=== PATIENT | female | born 1955 | race African-American/Black ===

== ENCOUNTER 2016-06-29 08:13 | Outpatient (CLI) | payer OTHER ==
[~2016-06-29 08:13] MED LIST: LEVO0.2T5 PO
[2016-06-29 09:54] LABS: HEMATOCRIT 41.7 % (36-48); HEMOGLOBIN 13.4 g/dL (12.0-16.0); MEAN CORPUSCULAR HEMOGLOBIN 26 pg (27-31); MEAN CORPUSCULAR HGB CONC 32 g/dL (33-37); MEAN CORPUSCULAR VOLUME 80 fL (80-94); PLATELET COUNT (AUTO) 317 K/uL (140-450); RED BLOOD CELL COUNT(AUTO) 5.23 MIL/uL (4.20-5.40); RED CELL DISTRIBUTION WIDTH 15.9 % (11.6-13.7)
[2016-06-29 09:59] LABS: WHITE BLOOD COUNT (AUTO) 6.4 K/uL (4.8-10.8)
[2016-06-29 10:30] LABS: ALANINE AMINOTRANSFERASE 30 U/L (12-78); ALBUMIN 3.8 g/dL (3.4-5.0); ALKALINE PHOSPHATASE 76 U/L (46-116); ANION GAP 8.8 (8-16); ASPARTATE AMINOTRANSFERASE 23 U/L (15-37); CALCIUM 9.2 mg/dL (8.5-10.1); CARBON DIOXIDE 31.4 mmol/L (21-32); CHLORIDE 102 mmol/L (98-107); CREATININE 0.9 mg/dL (0.6-1.3); GFR ARICAN-AMERICAN 82 mL/min (>90); GFR NON ARICAN-AMERICAN 67 mL/min (>90); GLUCOSE 100 mg/dL (74-106); POTASSIUM 3.2 mmol/L (3.5-5.1); SODIUM SERUM 139 mmol/L (136-145); TOTAL BILIRUBIN 0.4 mg/dL (0.0-1.0); TOTAL PROTEIN, SERUM 7.4 g/dL (6.4-8.2); UREA NITROGEN, BLOOD 12 mg/dL (7-18)
[2016-06-29 10:40] LABS: NEUTROPHILS % (MANUAL) 61 (43-65)
[2016-06-29 10:41] LABS: BASOPHILS % (MANUAL) 1 % (0-2); EOSINOPHILS % (MANUAL) 1 % (0-4); LYMPHOCYTES % (MANUAL) 33 % (20-46); MONOCYTES % (MANUAL) 4 % (5-12); PLATELET ESTIMATE ADEQUATE; THYROID STIMULATING HORMONE < 0.01 uIU/mL (0.34-3.76)
[2016-06-29 11:23] LABS: CHOL/HDL RATIO 3.1 (1-4.5); CHOLESTEROL 205 mg/dL (<200); HDL CHOLESTEROL 67 mg/dL (40-60); LDL (CALC) 130 mg/dL (60-100); TRIGLYCERIDES 44 mg/dL (30-150)
[2016-06-30 09:06] LABS: MICROALBUMIN, UR RANDOM <3.0 ug/mL (Not Estab.)
[2016-06-30 10:38] LABS: T4 (THYROXINE) 12.5 ug/dL (4.5-12.0)
== END 2016-06-29 20:55 | disposition home or self-care (01) ==
LOC: MLB 08:13
PROVIDERS: ATTEND Internal Medicine
DX: Z00.00 Encounter for general adult medical examination without abnormal findings (principal)
CPT/HCPCS: 36415; 80053; 82043; 83036; 84436; 84443; 85025

== ENCOUNTER 2017-04-12 11:25 | Emergency (ER) | payer OTHER ==
[~2017-04-12] VITALS: Ht 172.7 cm; Wt 65.8 kg
[2017-04-12 11:28] VITALS: BP 126/79
--- NOTE | 2017-04-12 11:42 | NUR ---
Pt taken to bed 11.
--- NOTE | 2017-04-12 11:45 | NUR ---
61/F presents to ED with c/o head pain to back of head s/p fall 3 days ago. Pt denies loss of conciousness. AOX4, clear speech. Ambulatory with steady gait. VSS. No distress noted. VSS. Friend presenta at bedside.
[2017-04-12] MEDS ORDERED: IBUPROFEN 800 MG TAB PO ONE (11:50)
--- NOTE | 2017-04-12 12:00 | NUR ---
Pt taken to CT via w/c.
[2017-04-12 12:45] VITALS: BP 125/86
== END 2017-04-12 12:45 | disposition home or self-care (01) ==
LOC: MED 11:25
DX: S09.90XA Unspecified injury of head, initial encounter (principal); I10 Essential (primary) hypertension; Z79.899 Other long term (current) drug therapy; W18.30XA Fall on same level, unspecified, initial encounter; Y93.89 Activity, other specified; Y92.89 Other specified places as the place of occurrence of the external cause; Y99.8 Other external cause status
CPT/HCPCS: 70450; 99284

== ENCOUNTER 2017-12-27 18:15 | Emergency (ER) | payer OTHER ==
[~2017-12-27] VITALS: Ht 162.6 cm; Wt 65.8 kg
--- NOTE | 2017-12-27 18:17 | NUR ---
PT TAKEN TO BED 7 VIA WHEELCHAIR
--- NOTE | 2017-12-27 18:19 | NUR ---
Patient being evaluated by physician at bedside.
[2017-12-27] MEDS ORDERED: ACETAMINOPHEN EXTRA STRENGTH 500 MG TAB PO ONE (18:35)
[2017-12-27 18:40] VITALS: BP 126/86
--- NOTE | 2017-12-27 18:56 | NUR ---
PATIENT VERY ANXIOUS UPON ARRIVAL TO ER. PATIENT STATED SHE THOUGHT SHE WAS HAVING A NERVOUS BREAKDOWN. PATIENT FELT MUCH BETTER AND MORE CALM ON TRIAGE. PATIENT STATED " I FEEL MUCH BETTER." PT STATES SHE HAS A HEADACHE, 5/10. VSS; PATIENT POSITIONED FOR COMFORT; HOB ELEVATED; BEDRAILS UP X1; BED DOWN. ER MD MADE AWARE OF PT STATUS.
[2017-12-27 19:07] VITALS: BP 126/86
== END 2017-12-27 19:08 | disposition home or self-care (01) ==
LOC: MED 18:15
DX: F43.9 Reaction to severe stress, unspecified (principal); I10 Essential (primary) hypertension; E03.9 Hypothyroidism, unspecified; Z79.899 Other long term (current) drug therapy
CPT/HCPCS: 81002; 81025; 99283

== ENCOUNTER 2018-02-13 01:30 | Emergency (ER) | payer OTHER ==
[~2018-02-13] VITALS: Ht 172.7 cm; Wt 68.0 kg
[2018-02-13 01:37] VITALS: BP 138/79
--- NOTE | 2018-02-13 01:38 | NUR ---
TO BED # 5 , AMB, REPORT GIVEN TO NILSON STEPHENS
[2018-02-13 01:40] VITALS: BP 138/79
--- NOTE | 2018-02-13 01:40 | NUR ---
PATIENT PRESENTS TO ED WITH BACK PAIN, STARTED AT 1500HOUR, NO TRAUMA NOR INJURY . PAGTIENT DENIES N/V/D; SKIN IS PINK/WARM/DRY; AAOX4 WITH EVEN AND STEADY GAIT; LUNGS CLEAR BL; HR EVEN AND REGULAR; PT DENIES ANY FEVER, CP, SOB, OR COUGH AT THIS TIME; PATIENT STATES PAIN OF 7/10 AT THIS TIME; VSS; PATIENT POSITIONED FOR COMFORT; HOB ELEVATED; BEDRAILS UP X2; BED DOWN. ER MD MADE AWARE OF PT STATUS.
--- NOTE | 2018-02-13 02:20 | NUR ---
Patient being evaluated by physician at bedside.
[2018-02-13] MEDS ORDERED: KETOROLAC 30 MG/ML VIAL IM ONE (02:35)
[2018-02-13] MEDS ORDERED: DIAZEPAM 5 MG TAB PO ONE (02:35)
[2018-02-13] MEDS ORDERED: ACETAMINOPHEN 325 MG TAB PO ONE (03:30)
--- NOTE | 2018-02-13 03:30 | NUR ---
Patient does not wish to proceed with medical care recommended by Dr Rutherford. Patient given information related to possible complications, up to and including , which could occur as a result of leaving hospital at this time. Patient verbalizes understanding of risks involved leaving against medical advice. Patient has signed AMA form.
--- NOTE | 2018-02-13 03:30 | NUR ---
Patient discharged with v/s stable. Written and verbal after care instructions given and explained along side with AMA form. Patient alert, oriented and verbalized understanding of instructions GCS 15. Ambulatory with steady gait. All questions addressed prior to discharge. ID band removed. Patient advised to follow up with PMD. Rx of Lidoderm, Valium, Tylenol given. Patient educated on indication of medication including possible reaction and side effects. Opportunity to ask questions provided and answered.
== END 2018-02-13 03:30 | disposition left against medical advice (07) ==
LOC: MED 01:30
DX: M54.6 Pain in thoracic spine (principal); I10 Essential (primary) hypertension; E07.9 Disorder of thyroid, unspecified; Z79.899 Other long term (current) drug therapy
CPT/HCPCS: 96372; 99283; J1885

== ENCOUNTER 2019-09-25 14:10 | Outpatient (CLI) | payer OTHER ==
[2019-09-27 09:21] LABS: T4 FREE (DIRECT) 1.62 ng/dL (0.82-1.77)
== END 2019-09-25 16:00 | disposition home or self-care (01) ==
LOC: MLB 14:10
PROVIDERS: ATTEND Internal Medicine
DX: E03.9 Hypothyroidism, unspecified (principal)
CPT/HCPCS: 36415; 82672; 84144; 84439; 84443

== ENCOUNTER 2020-03-20 16:44 | Emergency (ER) | payer OTHER ==
[~2020-03-20] VITALS: Ht 172.7 cm; Wt 68.0 kg
[2020-03-20 17:17] VITALS: BP 128/88
--- NOTE | 2020-03-20 17:25 | NUR ---
64 y/o female from home c/o cough and body aches x 4 days. Pt states dry cough, admits to smoking 1 pack of cigarettes/day. RR even and unlabored, does not appear in distress. states 9/10 aching to body. VSS
--- NOTE | 2020-03-20 17:46 | NUR ---
JANUARY [place] examining patient
--- NOTE | 2020-03-20 18:00 | NUR ---
Covid swab collected and walked to lab
[2020-03-20 18:20] VITALS: BP 128/88
--- NOTE | 2020-03-20 18:20 | NUR ---
Patient discharged with v/s stable. Written and verbal after care instructions given and explained. Patient alert, oriented and verbalized understanding of instructions. Ambulatory with steady gait. All questions addressed prior to discharge. ID band removed. Patient advised to follow up with PMD. Rx of Tylenol extra strength 500mg and Promethazine 6.25mg given. Patient educated on indication of medication including possible reaction and side effects. Opportunity to ask questions provided and answered.
== END 2020-03-20 18:20 | disposition home or self-care (01) ==
LOC: MED 16:44
DX: R05 Cough (principal); Z20.828 Contact with and (suspected) exposure to other viral communicable diseases; F17.290 Nicotine dependence, other tobacco product, uncomplicated; I10 Essential (primary) hypertension; E07.9 Disorder of thyroid, unspecified; Z79.899 Other long term (current) drug therapy; Z90.710 Acquired absence of both cervix and uterus; Z98.890 Other specified postprocedural states; Z71.6 Tobacco abuse counseling
CPT/HCPCS: 99283; U0003

== ENCOUNTER 2020-04-13 08:53 | Emergency (ER) | payer OTHER ==
[~2020-04-13] VITALS: Ht 172.7 cm; Wt 65.8 kg
[2020-04-13 08:59] VITALS: BP 127/78
[2020-04-13] MEDS ORDERED: KETOROLAC 60 MG/2 ML VIAL IM ONE (09:20)
[2020-04-13 09:28] VITALS: BP 127/78
== END 2020-04-13 09:28 | disposition home or self-care (01) ==
LOC: MED 08:53
DX: S20.219A Contusion of unspecified front wall of thorax, initial encounter (principal); R05 Cough; I10 Essential (primary) hypertension; E07.9 Disorder of thyroid, unspecified; F17.210 Nicotine dependence, cigarettes, uncomplicated; Z98.890 Other specified postprocedural states; Z79.899 Other long term (current) drug therapy; X58.XXXA Exposure to other specified factors, initial encounter; Y93.89 Activity, other specified; Y92.89 Other specified places as the place of occurrence of the external cause; Y99.8 Other external cause status
CPT/HCPCS: 96372; 99283; J1885

== ENCOUNTER 2020-05-06 18:15 | Inpatient (IN) | payer OTHER, SELFPAY ==
[~2020-05-06] VITALS: Ht 172.7 cm; Wt 65.8 kg
[2020-05-06 18:34] VITALS: BP 86/60
[2020-05-06] MEDS ORDERED: guaiFENesin/CODEINE 100/10MG 5 ML UDC PO ONE (19:35)
[2020-05-06] MEDS ORDERED: AZITHROMYCIN 250 MG TAB PO ONE (20:00)
[2020-05-06 20:20] LABS: BASOPHILS # (AUTO) 0.1 K/uL (0.00-0.22); BASOPHILS % (AUTO) 0.7 % (0.0-2.0); EOSINOPHILS # (AUTO) 0.3 K/uL (0-0.4); EOSINOPHILS % (AUTO) 3.6 % (0.0-4.0); HEMOGLOBIN 13.3 g/dL (12.0-16.0); LYMPHOCYTES # (AUTO) 1.6 K/uL (2.5-16.5); MEAN CORPUSCULAR HEMOGLOBIN 29 pg (27-31); MEAN CORPUSCULAR HGB CONC 34 g/dL (33-37); MEAN CORPUSCULAR VOLUME 85.4 fL (80-94); MONOCYTES # (AUTO) 0.7 K/uL (0.8-1.0); MONOCYTES % (AUTO) 8.6 % (1.7-9.3); NEUTROPHILS # (AUTO) 5.2 K/uL (1.8-7.7); NEUTROPHILS % (AUTO) 66.1 % (42.2-75.2); PLATELET COUNT (AUTO) 407 K/uL (140-450); RED BLOOD CELL COUNT(AUTO) 4.56 MIL/uL (4.20-5.40); RED CELL DISTRIBUTION WIDTH 14.4 % (11.6-13.7); WHITE BLOOD COUNT (AUTO) 7.9 K/uL (4.8-10.8)
[2020-05-06] MEDS ORDERED: cefTRIAXone 1,000 MG VIAL ONE (20:26)
[2020-05-06] MEDS ORDERED: NACL 0.9% 1,000 ML IV ONE (20:30)
[2020-05-06 20:41] LABS: ALBUMIN 3.4 g/dL (3.4-5.0); ANION GAP 11.3 (8-16); CREATININE 0.9 mg/dL (0.6-1.3); POTASSIUM 3.3 mmol/L (3.5-5.1); TOTAL BILIRUBIN 0.3 mg/dL (0.0-1.0)
[2020-05-06] MEDS ORDERED: ONDANSETRON 4 MG/2 ML VIAL IM/IVP PRN (21:10)
[2020-05-06] MEDS ORDERED: ACETAMINOPHEN 325 MG TAB PO PRN (21:10)
[2020-05-06] MEDS ORDERED: POTASSIUM CHLORIDE 40 MEQ, LIDOCAINE MPF 1% 25 MG in NACL 0.9% 250 ML IV PRN (21:10)
[2020-05-06] MEDS ORDERED: MAG SULF 2000 MG/WATER PREMIX 50 ML IV PRN (21:10)
[2020-05-06] MEDS ORDERED: hydrALAZINE 10 MG TAB PO PRN (21:10)
[2020-05-06] MEDS ORDERED: SODIUM PHOS / POTASSIUM PHOS 1 PKT PDR PO PRN (21:10)
[2020-05-06] MEDS ORDERED: DOCUSATE SODIUM 100 MG GELCAP PO PRN (21:10)
[2020-05-06] MEDS ORDERED: HYDROcodone/APAP 5/325 MG 1 TAB TAB PO ONE (21:15)
[2020-05-06] MEDS ORDERED: ALBUTEROL SULFATE/IPRATROPIU 3 ML SOL IH PRN (21:20)
[2020-05-06 21:54] LABS: PHOSPHORUS 2.9 mg/dL (2.5-4.9)
[2020-05-06 22:30] VITALS: BP 139/91
[2020-05-06] MEDS: NACL 0.9% 1,000 ML IV SCH (22:44)
[2020-05-06] MEDS ORDERED: POTASSIUM CHLORIDE 10 MEQ TABER PO SCH (23:05)
[2020-05-06] MEDS: PANTOPRAZOLE 40 MG INJ VIAL IVP SCH (23:13)
[2020-05-07] VITALS: BP 129/88
[2020-05-07] MEDS: HYDROcodone/APAP 5/325 MG 1 TAB TAB PO PRN ×4 (01:24→20:43)
[2020-05-07] MEDS: guaiFENesin DM 200/20 MG-10 ML 10 ML UDC PO PRN ×4 (01:24→20:42)
[2020-05-07 04:00] VITALS: BP 130/83
[2020-05-07] MEDS: LEVOTHYROXINE 0.1 MG TAB PO SCH (05:54)
[2020-05-07 07:42] LABS: BASOPHILS # (AUTO) 0.1 K/uL (0.00-0.22); BASOPHILS % (AUTO) 1.2 % (0.0-2.0); EOSINOPHILS # (AUTO) 0.3 K/uL (0-0.4); HEMATOCRIT 37.7 % (36-48); HEMOGLOBIN 12.6 g/dL (12.0-16.0); LYMPHOCYTES # (AUTO) 1.4 K/uL (2.5-16.5); LYMPHOCYTES % (AUTO) 19.2 % (20.5-51.1); MEAN CORPUSCULAR HEMOGLOBIN 29 pg (27-31); MEAN CORPUSCULAR HGB CONC 33 g/dL (33-37); MEAN CORPUSCULAR VOLUME 86.8 fL (80-94); MONOCYTES # (AUTO) 0.8 K/uL (0.8-1.0); MONOCYTES % (AUTO) 10.3 % (1.7-9.3); NEUTROPHILS # (AUTO) 4.9 K/uL (1.8-7.7); NEUTROPHILS % (AUTO) 65.3 % (42.2-75.2); PLATELET COUNT (AUTO) 397 K/uL (140-450); RED BLOOD CELL COUNT(AUTO) 4.34 MIL/uL (4.20-5.40); WHITE BLOOD COUNT (AUTO) 7.5 K/uL (4.8-10.8)
[2020-05-07 07:48] LABS: ANION GAP 11.1 (8-16); CARBON DIOXIDE 27.1 mmol/L (21-32); CREATININE 0.9 mg/dL (0.6-1.3); POTASSIUM 4.2 mmol/L (3.5-5.1)
[2020-05-07 08:00] VITALS: BP 113/74
[2020-05-07] MEDS: ALBUTEROL SULFATE/IPRATROPIU 3 ML SOL IH SCH ×3 (08:09→19:00)
[2020-05-07] MEDS: PANTOPRAZOLE 40 MG INJ VIAL IVP SCH (08:22)
[2020-05-07] MEDS: AZITHROMYCIN 250 MG TAB PO SCH (08:22)
[2020-05-07 12:00] VITALS: BP 106/70
[2020-05-07 16:00] VITALS: BP 110/67
[2020-05-07 20:00] VITALS: BP 107/69
[2020-05-07] MEDS: NACL 0.9% 1,000 ML IV SCH (21:11)
[2020-05-07] MEDS ORDERED: VANCOMYCIN PER PHARMACY MC PRN (21:40)
[2020-05-07] MEDS ORDERED: VANCOMYCIN 500 MG VIAL ONE (22:56)
[2020-05-07] MEDS ORDERED: VANCOMYCIN HCL 1,250 MG in DEXTROSE 5% 250 ML IV SCH (23:00)
[2020-05-07] MEDS ORDERED: ZOLPIDEM 5 MG TAB PO PRN (23:20)
[2020-05-07] MEDS ORDERED: MELATONIN 3 MG TAB PO PRN (23:40)
[2020-05-08] VITALS: BP 116/84
[2020-05-08] MEDS: guaiFENesin DM 200/20 MG-10 ML 10 ML UDC PO PRN ×4 (03:33→22:59)
[2020-05-08] MEDS: HYDROcodone/APAP 5/325 MG 1 TAB TAB PO PRN ×4 (03:34→21:24)
[2020-05-08 04:00] VITALS: BP 104/73
[2020-05-08] MEDS: LEVOTHYROXINE 0.1 MG TAB PO SCH (05:40)
[2020-05-08] MEDS: ALBUTEROL SULFATE/IPRATROPIU 3 ML SOL IH SCH ×2 (07:00→13:00)
[2020-05-08 07:01] LABS: BASOPHILS # (AUTO) 0.1 K/uL (0.00-0.22); BASOPHILS % (AUTO) 1.4 % (0.0-2.0); EOSINOPHILS # (AUTO) 0.3 K/uL (0-0.4); EOSINOPHILS % (AUTO) 4.4 % (0.0-4.0); HEMATOCRIT 36.2 % (36-48); HEMOGLOBIN 12.2 g/dL (12.0-16.0); LYMPHOCYTES # (AUTO) 1.3 K/uL (2.5-16.5); LYMPHOCYTES % (AUTO) 19.3 % (20.5-51.1); MEAN CORPUSCULAR HEMOGLOBIN 29 pg (27-31); MEAN CORPUSCULAR HGB CONC 34 g/dL (33-37); MEAN CORPUSCULAR VOLUME 86.3 fL (80-94); MONOCYTES # (AUTO) 0.9 K/uL (0.8-1.0); MONOCYTES % (AUTO) 13.2 % (1.7-9.3); NEUTROPHILS # (AUTO) 4.1 K/uL (1.8-7.7); NEUTROPHILS % (AUTO) 61.7 % (42.2-75.2); PLATELET COUNT (AUTO) 379 K/uL (140-450); RED BLOOD CELL COUNT(AUTO) 4.19 MIL/uL (4.20-5.40); RED CELL DISTRIBUTION WIDTH 14.2 % (11.6-13.7); WHITE BLOOD COUNT (AUTO) 6.6 K/uL (4.8-10.8)
[2020-05-08 07:11] LABS: ANION GAP 10.9 (8-16); CARBON DIOXIDE 26.9 mmol/L (21-32); CREATININE 0.8 mg/dL (0.6-1.3); POTASSIUM 3.8 mmol/L (3.5-5.1)
[2020-05-08 07:12] LABS: MAGNESIUM 1.8 mg/dL (1.8-2.4); PHOSPHORUS 3.8 mg/dL (2.5-4.9)
[2020-05-08 08:00] VITALS: BP 113/86
[2020-05-08] MEDS: PANTOPRAZOLE 40 MG INJ VIAL IVP SCH (09:44)
[2020-05-08] MEDS: AZITHROMYCIN 250 MG TAB PO SCH (09:44)
[2020-05-08 12:00] VITALS: BP 112/64
[2020-05-08] MEDS: VANCOMYCIN 750 MG in DEXTROSE 5% 250 ML IV SCH (13:38)
[2020-05-08 16:00] VITALS: BP 118/84
[2020-05-08 20:00] VITALS: BP 115/86
[2020-05-08] MEDS: methylPREDNISolone SS 40 MG/ML VIAL IVP SCH (20:06)
[2020-05-08] MEDS: NACL 0.9% 1,000 ML IV SCH (21:10)
[2020-05-09] VITALS: BP 120/81
[2020-05-09] MEDS: VANCOMYCIN 750 MG in DEXTROSE 5% 250 ML IV SCH (01:10)
[2020-05-09] MEDS: HYDROcodone/APAP 5/325 MG 1 TAB TAB PO PRN ×4 (03:13→20:38)
[2020-05-09 04:00] VITALS: BP 134/81
[2020-05-09] MEDS: LEVOTHYROXINE 0.1 MG TAB PO SCH (05:35)
[2020-05-09] MEDS: guaiFENesin DM 200/20 MG-10 ML 10 ML UDC PO PRN ×3 (05:36→20:16)
[2020-05-09] MEDS: methylPREDNISolone SS 40 MG/ML VIAL IVP SCH ×2 (09:01→20:15)
[2020-05-09] MEDS: PANTOPRAZOLE 40 MG INJ VIAL IVP SCH (09:01)
[2020-05-09] MEDS: AZITHROMYCIN 250 MG TAB PO SCH (09:01)
[2020-05-09] MEDS ORDERED: VANC125C5 PO (11:13)
[2020-05-09] MEDS ORDERED: CEPH250C16 PO (11:13)
[2020-05-09] MEDS ORDERED: ALBU0.0912 IH (11:13)
[2020-05-09] MEDS ORDERED: AZIT250T3 PO (11:13)
[2020-05-09 11:17] VITALS: BP 115/88
[2020-05-09] MEDS ORDERED: HYDR-5080 PO (11:26)
[2020-05-09 12:36] VITALS: BP 131/88
[2020-05-09 12:50] LABS: ANION GAP 10.7 (8-16); CARBON DIOXIDE 27.5 mmol/L (21-32); CREATININE 0.8 mg/dL (0.6-1.3); POTASSIUM 4.2 mmol/L (3.5-5.1)
[2020-05-09] MEDS ORDERED: VANCOMYCIN 1,000 MG in DEXTROSE 5% 250 ML IV SCH (14:00)
[2020-05-09 18:44] VITALS: BP 127/81
[2020-05-09 20:00] VITALS: BP 119/92
[2020-05-09] MEDS: CLINDAMYCIN 600 MG in DEXTROSE 5% 50 ML IV SCH (20:14)
[2020-05-09] MEDS: NACL 0.9% 1,000 ML IV SCH (20:16)
[2020-05-09] MEDS: MORPHINE SULFATE 2 MG/ML SYR IVP PRN (22:32)
[2020-05-10] VITALS: BP 117/83
[2020-05-10 04:00] VITALS: BP 124/74
[2020-05-10] MEDS: guaiFENesin DM 200/20 MG-10 ML 10 ML UDC PO PRN ×2 (04:13→09:30)
[2020-05-10] MEDS: CLINDAMYCIN 600 MG in DEXTROSE 5% 50 ML IV SCH (04:13)
[2020-05-10] MEDS: MORPHINE SULFATE 2 MG/ML SYR IVP PRN ×2 (04:14→09:30)
[2020-05-10] MEDS: LEVOTHYROXINE 0.1 MG TAB PO SCH (06:43)
[2020-05-10 08:00] VITALS: BP 145/92
[2020-05-10] MEDS: PANTOPRAZOLE 40 MG INJ VIAL IVP SCH (09:30)
[2020-05-10] MEDS: methylPREDNISolone SS 40 MG/ML VIAL IVP SCH (09:30)
[2020-05-10] MEDS ORDERED: CODE-107 PO (10:54)
== END 2020-05-10 12:00 | disposition home or self-care (01) | DRG 193 ==
LOC: MED 18:15 → MTU 21:18
PROVIDERS: ADMIT Hospitalist; ATTEND Hospitalist
DX: J18.9 Pneumonia, unspecified organism (principal); J96.01 Acute respiratory failure with hypoxia; J44.0 Chronic obstructive pulmonary disease with (acute) lower respiratory infection; J44.1 Chronic obstructive pulmonary disease with (acute) exacerbation; E03.9 Hypothyroidism, unspecified; I10 Essential (primary) hypertension; Z87.891 Personal history of nicotine dependence; Z90.710 Acquired absence of both cervix and uterus; K21.9 Gastro-esophageal reflux disease without esophagitis; E87.6 Hypokalemia; Z20.822 Contact with and (suspected) exposure to COVID-19
CPT/HCPCS: 36415; 71045; 71250; 71260; 80048; 80053; 80202; 83605; 83735; 84100; 84484; 85025; 86140; 87040; 87081; 93005; 94640; 96365; 99285; C9113; J0696; J1644; J2270; J2920; J3370; J3490; J7030; J7060; Q9967; U0003

== ENCOUNTER 2020-05-17 12:15 | Inpatient (IN) | payer OTHER, SELFPAY ==
[~2020-05-17] VITALS: Ht 172.7 cm; Wt 64.4 kg
[~2020-05-17 12:15] MED LIST changes: +ALBU0.0912 IH; +AZIT250T3 PO; +CEPH250C16 PO; +CODE-107 PO; +HYDR-5080 PO; +VANC125C5 PO
[2020-05-17 12:22] VITALS: BP 143/100
--- NOTE | 2020-05-17 12:25 | NUR ---
Patient ambulated to bed 2 with steady/even gait.
--- NOTE | 2020-05-17 12:35 | NUR ---
ERMD is evaluating patient at bedside.
--- NOTE | 2020-05-17 12:35 | NUR ---
65 y/o F coming in from home with c/c shortness of breath. Pt states worsening shortness of breath upon awakening this morning. Pt states associated non-productive cough and dizziness. Pt states she was diagnosed with pnuemonia at [facility] 3 weeks ago and was admitted at [facility] 05/07-05/10. Pt was prescribed Cephalexin & Azithromycin and completed her antibiotics treatment yesterday. Pt denies fever, runny nose, N/V, fever/chills, chest pain, abdominal pain. Pt states last Covid test on 05/10 with (-) results. payroll tax specialist in place. Lung sounds crackles left lower lobe. VSS. Bed locked in lowest position, side rails x 1, call light in reach. PMH: HTN, hypothyroidism, GERD Meds: Keflex, Albuterol, Trazodone, Azithromycin, Synthyroid, Pyrimi NKA Sx: Bowel obstruction 2011, hysterectomy 2000
[2020-05-17] MEDS ORDERED: ALBUTEROL SULFATE/IPRATROPIU 3 ML SOL IH ONE ×3 (12:45)
[2020-05-17] MEDS ORDERED: predniSONE 20 MG TAB PO ONE (12:45)
--- NOTE | 2020-05-17 12:50 | NUR ---
Lab at bedside.
--- NOTE | 2020-05-17 12:55 | NUR ---
EKG at bedside.
[2020-05-17 13:03] LABS: BASOPHILS # (AUTO) 0.1 K/uL (0.00-0.22); BASOPHILS % (AUTO) 0.6 % (0.0-2.0); EOSINOPHILS # (AUTO) 0.2 K/uL (0-0.4); EOSINOPHILS % (AUTO) 1.7 % (0.0-4.0); HEMATOCRIT 38.4 % (36-48); HEMOGLOBIN 12.7 g/dL (12.0-16.0); LYMPHOCYTES # (AUTO) 1.1 K/uL (2.5-16.5); MEAN CORPUSCULAR HEMOGLOBIN 28 pg (27-31); MEAN CORPUSCULAR HGB CONC 33 g/dL (33-37); MEAN CORPUSCULAR VOLUME 84.6 fL (80-94); MONOCYTES # (AUTO) 1.3 K/uL (0.8-1.0); MONOCYTES % (AUTO) 12.8 % (1.7-9.3); NEUTROPHILS # (AUTO) 7.2 K/uL (1.8-7.7); NEUTROPHILS % (AUTO) 73.9 % (42.2-75.2); PLATELET COUNT (AUTO) 325 K/uL (140-450); RED BLOOD CELL COUNT(AUTO) 4.54 MIL/uL (4.20-5.40); RED CELL DISTRIBUTION WIDTH 14.5 % (11.6-13.7); WHITE BLOOD COUNT (AUTO) 9.8 K/uL (4.8-10.8)
--- NOTE | 2020-05-17 13:03 | NUR ---
RT at bedside for nebulizer treatment.
[2020-05-17 13:21] LABS: PROTHROMBIN TIME 10.4 secs (10.8-13.4)
[2020-05-17 13:23] LABS: ALBUMIN 3.3 g/dL (3.4-5.0); CARBON DIOXIDE 30.7 mmol/L (21-32); CREATININE 0.9 mg/dL (0.6-1.3); POTASSIUM 3.7 mmol/L (3.5-5.1); TOTAL BILIRUBIN 0.4 mg/dL (0.0-1.0)
--- NOTE | 2020-05-17 13:24 | NUR ---
X-ray transported patient via wheelchair on 2L/min N/C.
[2020-05-17] MEDS ORDERED: VANCOMYCIN PER PHARMACY MC PRN (13:30)
[2020-05-17] MEDS ORDERED: VANCOMYCIN 1GM/DEXT 5% PREMIX 200 ML IV ONE (13:30)
[2020-05-17] MEDS ORDERED: PIPERACILLIN/TAZOBACTAM 3.375 GM in DEXTROSE 5% 50 ML IV ONE (13:30)
[2020-05-17] MEDS ORDERED: PROMETH/CODEINE 6.25-10MG/5ML 5 ML UDC PO ONE (13:35)
--- NOTE | 2020-05-17 13:35 | NUR ---
RT at bedside
--- NOTE | 2020-05-17 13:35 | NUR ---
Patient resting in position of comfort. hall monitor in place. Equal chest rise and fall. Bed locked in lowest position, side rails x 1, call light in reach.
[2020-05-17] MEDS ORDERED: PIPERACILLIN/TAZOBACTAM 3.375 GM VIAL IV ONE (13:51)
--- NOTE | 2020-05-17 13:56 | NUR ---
Signature obtained for CT consent form.
--- NOTE | 2020-05-17 13:56 | NUR ---
RT at bedside for remaining nebulizer treatments.
--- NOTE | 2020-05-17 14:09 | NUR ---
biomed tech transported patient via gurney to CT. Disconnected from nuclear monitoring technician and ABX paused.
--- NOTE | 2020-05-17 14:20 | NUR ---
Pt returned from CT via gurney, placed back onto athletic monitor and ABX infusion continued.
--- NOTE | 2020-05-17 14:21 | NUR ---
Patient resting in position of comfort. cafeteria monitor in place. Equal chest rise and fall. Bed locked in lowest position, side rails x 1, call light in reach.
--- NOTE | 2020-05-17 15:01 | NUR ---
Pt disconnected from cardiac nurse specialist and assisted to the restroom via W/C.
--- NOTE | 2020-05-17 15:05 | NUR ---
Son provided with status update after pt verbal consent to provide information.
--- NOTE | 2020-05-17 15:05 | NUR ---
Patient states increasing pain from cough. Dr. Wolf made aware and orders placed.
[2020-05-17] MEDS ORDERED: HYDROcodone/APAP 5/325 MG 1 TAB TAB PO ONE (15:10)
--- NOTE | 2020-05-17 15:15 | NUR ---
Patient resting in position of comfort and has a coughing episode and pain due to cough. ERMD made aware. monitoring manager in place. Equal chest rise and fall. Bed locked in lowest position, side rails x 1, call light in reach.
[2020-05-17] MEDS ORDERED: VANCOMYCIN 1,000 MG VIAL ONE (15:16)
--- NOTE | 2020-05-17 15:24 | NUR ---
Pain medication carried out; pt states minor relief 7/10 pain at this time.
[2020-05-17] MEDS ORDERED: HEPARIN PER PHARMACY MC PRN ×2 (15:25→15:55)
--- NOTE | 2020-05-17 15:25 | NUR ---
Pt requesting more cough medication. Dr. Wolf made aware.
--- NOTE | 2020-05-17 15:35 | NUR ---
Dr. Wolf is reevaluating patient at bedside.
[2020-05-17] MEDS: PROMETH/CODEINE 6.25-10MG/5ML 5 ML UDC PO PRN ×2 (15:49→22:20)
[2020-05-17] MEDS ORDERED: POTASSIUM CHLORIDE 10 MEQ TABER PO PRN (15:50)
[2020-05-17] MEDS ORDERED: ACETAMINOPHEN 325 MG TAB PO PRN (15:50)
[2020-05-17] MEDS ORDERED: ONDANSETRON 4 MG/2 ML VIAL IM/IVP PRN (15:50)
[2020-05-17] MEDS ORDERED: DOCUSATE SODIUM 100 MG GELCAP PO PRN (15:50)
[2020-05-17] MEDS: NACL 0.9% 1,000 ML IV SCH (15:50)
[2020-05-17] MEDS ORDERED: ZOLPIDEM 5 MG TAB PO PRN (15:50)
--- NOTE | 2020-05-17 15:50 | NUR ---
RECEIVED REPORT FROM ER NURSE CHIOMA. PATIENT CAME IN WITH COMPLAINT OF SHORTNESS OF BREATH. DX IS PNEUMONIA. HX OF HTN, HYPOTHYROID, AND GERD. NO KNOWN ALLERGIES. FULL CODE. IS ABLE TO AMBULATE WITH ASSISTANCE. PATIENT IS ON REGULAR DIET. ON 3LNC SATURATING AT 96%. HAS A RIGHT AC 20G IV LINE WITH IVF RUNNING ON NS 60CC/HR. RAPID IS NEGATIVE. NO ORDER FOR PCR. PATIENT IS STANDARD PRECAUTION. AWAITING FOR PATIENT ARRIVING.
[2020-05-17] MEDS ORDERED: hePARIN / DEXT 5% PREMIX 250 ML IV SCH (15:55)
--- NOTE | 2020-05-17 16:15 | NUR ---
Patient resting in position of comfort. monitor worker in place. Equal chest rise and fall. Bed locked in lowest position, side rails x 1, call light in reach.
[2020-05-17 16:20] VITALS: BP 116/78
--- NOTE | 2020-05-17 16:20 | NUR ---
Patient will be admitted to care of Dr. Harman. Admited to Telemetry. Will go to room 121-B. Belongings list completed. Report to ANGELO Ramos.
--- NOTE | 2020-05-17 16:20 | NUR ---
RECEIVED THE PATIENT FROM ER. IN BED AOX4. PATIENT IS ON 3LNC. PATIENT IS ALSO HAVING PRODUCTIVE COUGHING. IV SITE IN PLACE AND INTACT. SAFETY MEASURES ARE IN PLACE. CALL LIGHT WITHIN REACH. WILL CONTINUE TO MONITOR NEEDED.
[2020-05-17 16:32] LABS: CHOL/HDL RATIO 2.5 (1-4.5); FREE T4 (FREE THYROXINE) 1.09 ng/dL (0.76-1.46); PHOSPHORUS 3.4 mg/dL (2.5-4.9); THYROID STIMULATING HORMONE 3.84 uIU/mL (0.34-3.74)
[2020-05-17 18:36] LABS: APPEARANCE,URINE CLEAR (CLEAR); BILIRUBIN,URINE NEGATIVE (NEGATIVE); BLOOD, URINE NEGATIVE (NEGATIVE); COLOR,URINE YELLOW (YELLOW); LEUKOCYTE ESTERASE ,URINE NEGATIVE (NEGATIVE); NITRITE, URINE POSITIVE (NEGATIVE); PH,URINE 6.5 (5.0-9.0); UGLUCOSE NEGATIVE (NEGATIVE)
[2020-05-17] MEDS: hePARIN / DEXT 5% PREMIX 250 ML IV SCH (18:55)
--- NOTE | 2020-05-17 19:00 | NUR ---
PATIENT RECIEVED IN BED ALERT AND ORIENTED X 4. DX IS PNEUMONIA. HX OF HTN, HYPOTHYROID, AND GERD. NO KNOWN ALLERGIES. FULL CODE. IS ABLE TO AMBULATE WITH ASSISTANCE. PATIENT IS ON REGULAR DIET. ON 3LNC SATURATING AT 96%. HAS A RIGHT AC 20G IV LINE WITH IVF RUNNING ON NS 60CC/HR. RAPID IS NEGATIVE. NO ORDER FOR PCR. PATIENT IS STANDARD PRECAUTION. PATIENT VERBALIZING NEED TO STAFF. DISCUSSED FALL AND SAFETY PRECAUTIONARY MEASURES. NO ACUTE DISTRESS NOTED.
[2020-05-17] MEDS: HYDROcodone/APAP 7.5/325 MG 1 TAB PO PRN (19:02)
--- NOTE | 2020-05-17 19:11 | NUR ---
STARTED PATIENT FOR 4500 UNITS OF HEPARIN BOLUS. AFTERWARDS HEPARIN DRIP 12ML/HR. ORDER PTT Q6H LABS WILL COME ON 0111AM. PATIENT IS STABLE
--- NOTE | 2020-05-17 19:44 | NUR ---
ENDORSED TO SPEECH WRITER NURSE FOR CONTINUATION OF CARE. PT IS STABLE.
[2020-05-17 20:00] VITALS: BP 112/70
[2020-05-17] MEDS: PIPERACILLIN/TAZOBACTAM 3.375 GM in DEXTROSE 5% 50 ML IV SCH (22:20)
[2020-05-18] VITALS: BP 116/72
[2020-05-18] MEDS: HYDROcodone/APAP 7.5/325 MG 1 TAB PO PRN ×4 (00:21→20:10)
[2020-05-18] MEDS: guaiFENesin DM 200/20 MG-10 ML 10 ML UDC PO PRN ×3 (00:21→16:00)
[2020-05-18] MEDS: hePARIN / DEXT 5% PREMIX 250 ML IV SCH ×2 (02:16→16:20)
[2020-05-18] MEDS ORDERED: MELATONIN 3 MG TAB PO PRN (03:05)
[2020-05-18 04:00] VITALS: BP 120/74
[2020-05-18] MEDS: PIPERACILLIN/TAZOBACTAM 3.375 GM in DEXTROSE 5% 50 ML IV SCH ×3 (04:49→20:05)
[2020-05-18] MEDS: LEVOTHYROXINE 0.1 MG TAB PO SCH (06:30)
--- NOTE | 2020-05-18 07:30 | NUR ---
Report received from pm nurse Sol. Pt resting in bed, awake, verbally responsive, respirations even & nonlabored on O2 @ 2Lpm via n/c. Left hand 24G intact with ongoing NS @ 60ml/hr. Right AC 20G intact with ongoing heparin drip @ 12ml/hr. Call light within reach.
[2020-05-18 08:00] VITALS: BP 120/78
[2020-05-18] MEDS: PANTOPRAZOLE 40 MG TABEC PO SCH (08:18)
--- NOTE | 2020-05-18 08:36 | NUR ---
PATIENT HAS BEEN SCREENED AND CATEGORIZED MODERATE NUTRITION RISK. PATIENT WILL BE SEEN WITHIN 3-5 DAYS OF ADMISSION. 05/20/20 05/22/[address]
[2020-05-18 08:55] LABS: BASOPHILS # (AUTO) 0.1 K/uL (0.00-0.22); EOSINOPHILS % (AUTO) 0.4 % (0.0-4.0); HEMATOCRIT 35.4 % (36-48); HEMOGLOBIN 11.6 g/dL (12.0-16.0); LYMPHOCYTES % (AUTO) 9.1 % (20.5-51.1); MEAN CORPUSCULAR HEMOGLOBIN 28 pg (27-31); MEAN CORPUSCULAR HGB CONC 33 g/dL (33-37); MEAN CORPUSCULAR VOLUME 85.9 fL (80-94); MONOCYTES # (AUTO) 1.2 K/uL (0.8-1.0); MONOCYTES % (AUTO) 10.8 % (1.7-9.3); NEUTROPHILS # (AUTO) 8.7 K/uL (1.8-7.7); NEUTROPHILS % (AUTO) 78.7 % (42.2-75.2); PLATELET COUNT (AUTO) 322 K/uL (140-450); RED BLOOD CELL COUNT(AUTO) 4.12 MIL/uL (4.20-5.40); RED CELL DISTRIBUTION WIDTH 14.5 % (11.6-13.7)
[2020-05-18] MEDS: VANCOMYCIN HCL 750 MG in DEXTROSE 5% 250 ML IV SCH ×2 (09:02→21:42)
[2020-05-18] MEDS: NACL 0.9% 1,000 ML IV SCH (09:02)
[2020-05-18 09:03] LABS: ANION GAP 9.1 (8-16); CARBON DIOXIDE 30.2 mmol/L (21-32); CREATININE 0.9 mg/dL (0.6-1.3); POTASSIUM 3.3 mmol/L (3.5-5.1)
--- NOTE | 2020-05-18 10:00 | NUR ---
Right AC IV leaking. New IV 24G placed to right hand and resumed heparin drip @ 12ml/hr. Patient denies and discomfort at this time. Intermittent dry cough present. Respirations even & nonlabored on O2 @ 2Lpm via n/c.
[2020-05-18] MEDS: PROMETH/CODEINE 6.25-10MG/5ML 5 ML UDC PO PRN ×2 (10:10→20:04)
[2020-05-18 12:00] VITALS: BP 109/82
--- NOTE | 2020-05-18 13:00 | NUR ---
durability technician at bedside for echocardiogram. Pt resting in bed, no signs of distress, intermittent dry cough present. Right hand IV intact &asymptomatic with ongoing heparin drip @ 12ml/hr.
[2020-05-18 16:00] VITALS: BP 118/74
--- NOTE | 2020-05-18 17:00 | NUR ---
Patient's daughter by window to see patient. Patient interacting appropriately, no signs of distress.
--- NOTE | 2020-05-18 19:10 | NUR ---
Report given to pm nurse Parris.
--- NOTE | 2020-05-18 19:11 | NUR ---
RECEIVED BEDSIDE REPORT FROM DAY RN. PT IS AAOX4. AMBULATORY WITH ASSIST. RESPIRATIONS ARE EQUAL AND UNLABORED ON NC 3L O2. SKIN IS INTACT. IV ON R BARNHART 24G ON HEPARIN DRIP AT 12ML/H. FOR PE. L BARNHART INFUSING NS AT 60ML/H. NEXT PTT TO BE DRAWN TOMORROW MORNING. NO S/S OF BLEEDING REPORTED. PT REPORTS DRY COUGH. ON STANDARD ISOLATION. COVID PROSPER NEGATIVE. DENIES LOSS TASTE OR SMELL. POC DISCUSSED WITH PT. CALL LIGHT IS WITHIN REACH.
[2020-05-18 20:00] VITALS: BP 125/72
--- NOTE | 2020-05-18 20:05 | NUR ---
VITAL SIGNS ARE STABLE. YOLANDA MEDICATIONS GIVEN PER ORDERS. MED EDUCATION GIVEN. ALL NEEDS MET. CALL LIGHT IS WITHIN REACH.
--- NOTE | 2020-05-18 21:45 | NUR ---
ASSISTED PATIENT TO RESTROOM. GAIT IS STEADY. PT TOLERATED WELL. CALL LIGHT IS WITHIN REACH.
[2020-05-18] MEDS: ALBUTEROL 0.083% 2.5 MG/3 ML NEBU INH PRN (21:46)
[2020-05-19] VITALS: BP 131/83
--- NOTE | 2020-05-19 | NUR ---
VSS. CALL LIGHT WITHIN REACH. WILL CONTINUE TO MONITOR.
[2020-05-19] MEDS: guaiFENesin DM 200/20 MG-10 ML 10 ML UDC PO PRN ×2 (01:06→09:38)
[2020-05-19] MEDS: NACL 0.9% 1,000 ML IV SCH (01:10)
--- NOTE | 2020-05-19 02:00 | NUR ---
PT FOUND ASLEEP IN SEMI-ANGUIANO'S POSITION IN BED. PT HAS VISIBLE EQUAL RISE AND FALL UPON RESPIRATION. NO DISTRESS NOTED. VSS. BED LOCKED IN LOWEST POSITION WITH 2 SIDE RAILS UP FOR SAFETY. CALL LIGHT WITHIN REACH.
[2020-05-19 04:00] VITALS: BP 126/81
[2020-05-19] MEDS: PIPERACILLIN/TAZOBACTAM 3.375 GM in DEXTROSE 5% 50 ML IV SCH ×2 (05:34→13:00)
[2020-05-19] MEDS: LEVOTHYROXINE 0.1 MG TAB PO SCH (05:34)
--- NOTE | 2020-05-19 05:34 | NUR ---
ASSISTED PATIENT TO BATHROOM. YOLANDA MEDICATIONS GIVEN PER ORDERS. ALL NEEDS MET. CALL LIGHT IS WITHIN REACH.
[2020-05-19] MEDS: PROMETH/CODEINE 6.25-10MG/5ML 5 ML UDC PO PRN ×2 (05:49→14:09)
--- NOTE | 2020-05-19 07:15 | NUR ---
FESTUS' REPORT FROM ARCHITECTURAL DRAFTING INSTRUCTOR NURSE, PT STABLE NO SIGN OF DISTRESS, 3L NC, IV SITE R. HAND INFILTRATED. HEPARING DRIP CHANGED TO L. HAND.NURSE TO REESTABLISH IV. CALL LIGHT WITHIN REACH
--- NOTE | 2020-05-19 07:43 | NUR ---
TRANSFER OF CARE REPORT PROVIDED TO LORRAINE STEPHENS.
[2020-05-19 08:18] LABS: BASOPHILS # (AUTO) 0.1 K/uL (0.00-0.22); BASOPHILS % (AUTO) 0.6 % (0.0-2.0); EOSINOPHILS # (AUTO) 0.3 K/uL (0-0.4); EOSINOPHILS % (AUTO) 3.8 % (0.0-4.0); HEMATOCRIT 34.7 % (36-48); HEMOGLOBIN 11.4 g/dL (12.0-16.0); LYMPHOCYTES # (AUTO) 0.9 K/uL (2.5-16.5); LYMPHOCYTES % (AUTO) 10.2 % (20.5-51.1); MEAN CORPUSCULAR HEMOGLOBIN 28 pg (27-31); MEAN CORPUSCULAR HGB CONC 33 g/dL (33-37); MEAN CORPUSCULAR VOLUME 85.9 fL (80-94); MONOCYTES % (AUTO) 11.3 % (1.7-9.3); NEUTROPHILS # (AUTO) 6.6 K/uL (1.8-7.7); NEUTROPHILS % (AUTO) 74.1 % (42.2-75.2); PLATELET COUNT (AUTO) 318 K/uL (140-450); RED BLOOD CELL COUNT(AUTO) 4.04 MIL/uL (4.20-5.40); RED CELL DISTRIBUTION WIDTH 14.4 % (11.6-13.7); WHITE BLOOD COUNT (AUTO) 8.9 K/uL (4.8-10.8)
[2020-05-19 08:34] LABS: ANION GAP 11.3 (8-16); CREATININE 1.1 mg/dL (0.6-1.3); POTASSIUM 4.3 mmol/L (3.5-5.1)
--- NOTE | 2020-05-19 08:40 | NUR ---
PT IV INFILTRATED, REMOVED L. HAND IV CATHETER INTACT, PER PT DO NOT RE ESTABLISH, WISHES FOR HER VEINS TO HAVE A BREAK
--- NOTE | 2020-05-19 09:13 | NUR ---
EDEN TALLEY: RECEIVED ORDER FOR HIGHER LEVEL TRANSFER. FAXED TO [facility]. Addendum: 05/19/20 at 922 by Leeann Lopez CM EDEN TALLEY: CONTACTED [facility] SPOKE TO SHARONDA [phone] IN ADMITTING FAX NUMBER [phone]. WILL FAX OVER CLINICALS. 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 SHE TRANSFERRED ME TO CASE MANAGEMENT TO HANDLE THIS TRANSFER. FAXED PATIENTS CLINICALS TO [phone]. Addendum: 05/19/20 at 1026 by Leeann Lopez CM EDEN TALLEY: RECEIVED A PHONE CALL FROM LADARIUS LALA AT [facility]. SHE STATED THAT THEY ARE A SMALL [facility] AND CAN NOT ACCEPT PATIENT FOR THIS HIGHER LEVEL TRANSFER. Addendum: 05/19/20 at 1031 by Leeann Lopez CM DC MULTIMEDIA INSTRUCTIONAL DESIGNER: SPOKE TO PREETHI AT THE TRANSFER CENTER FOR [facility]. SHE STATED BEFORE WE FAX OVER A REFERRAL WE HAVE TO HAVE AN ACCEPTING DOCTOR. SHE SAID FOR US TO CONTACT THE HOSPITALIST AT [phone]. Addendum: 05/19/20 at 1122 by Destiny Burr RN DC PLANNING: CALLED [employer] [phone] SPOKE WITH LADARIUS SHEEHAN NOTIFIED HER THE REQUEST FOR HIGHER LEVEL FOR FOR CARDIAC TAMPONADE, PT NEEDS PERICARDIOCENTESIS. I INFORMED HER WE FAXED TO [facility] CAN NOT PERFORM THE PROCEDURE. PER ANTOINE WILL CALL [employer] [employer] AND WILL CALL BACK. LADARIUS TO FOLLOW Addendum: 05/19/20 at 1212 by Destiny Burr RN DC PLANNING: RECEIVED A CALL FROM APARNA CHARLES WITH [facility] STATED [facility] IS ACCEPTING A PATIENT. NOTIFIED PT, AND DAUGHTER EXPLAINED NO CONTRACTED FACILITIES ARE PERFORMING THE PROCEDURE AT THIS AREA. PT AGREED, AWAITING FOR BED. CM TO FOLLOW Addendum: 05/19/20 at 1232 by Leeann Lopez CM DC MULTIMEDIA INSTRUCTIONAL DESIGNER: RECEIVED A PHONE CALL FROM SHARONDA AT [facility] THEY ARE ABLE TO ACCEPT THIS PATIENT TO ROOM [address] GAMEZ THE DOCTOR WHO WILL BE PERFORMING THE PROCEDURE IS DR. SHELTON. DR. TEJADA MADE AWARE. Addendum: 05/19/20 at 1238 by Leeann Lopez CM DC MULTIMEDIA INSTRUCTIONAL DESIGNER: CONTACTED PATIENTS ROOM PHONE SPOKE TO HER ABOUT ACCEPTING HOSPITAL. SHE IS AGREEABLE Addendum: 05/19/20 at 1242 by Leeann Lopez CM EDEN RUIZNER: [place] [address] ROOM 8112 NUMBER FOR REPORT [phone] ACCEPTING DOCTOR: DR. GAMEZ Addendum: 05/19/20 at 1243 by Leeann Lopez CM EDEN TALLEY: ARRANGED TRANSPORTATION WITH [facility] [phone] POLYMERIZATION HELPER TIME IS 3:00 PM Addendum: 05/19/20 at 1251 by Leeann Lopez CM DC GERRI: NOTIFIED AGNELO PHILLIPS Addendum: 05/19/20 at 1334 by Leeann Lopez CM DC GERRI: RECEIVED A PHONE CALL FROM SHARONDA PATIENT WILL BE GOING TO A NEW ROOM NUMBER [id number]. NEW NUMBER FOR REPORT [phone] Addendum: 05/19/20 at 1336 by Leeann Lopez CM DC GERRI: UPDATED ANGELO
--- NOTE | 2020-05-19 09:35 | NUR ---
PT DID NOT WISH TO HAVE IV REESTABLISHED, COULD NOT ADMINISTER IV ABX.
[2020-05-19] MEDS: PANTOPRAZOLE 40 MG TABEC PO SCH (09:38)
[2020-05-19] MEDS: HYDROcodone/APAP 7.5/325 MG 1 TAB PO PRN ×2 (09:38→15:06)
[2020-05-19] MEDS: VANCOMYCIN HCL 750 MG in DEXTROSE 5% 250 ML IV SCH (09:39)
--- NOTE | 2020-05-19 09:42 | NUR ---
PTT CURRENTLY 51.3 PER PROTOCOL NO CHANGE IN DOSAGE. UPDATED IV SPREADSHEET
--- NOTE | 2020-05-19 12:50 | NUR ---
PT DID NOT WISH TO HAVE IV ACCESS REESTABLISHED, SAID ONCE SHE HAS BEEN TRANSPORTED TO NEW FACILITY SHE WILL LET THEM KNOW. DR. TEJADA AWARE.
[2020-05-19] MEDS: hePARIN / DEXT 5% PREMIX 250 ML IV SCH (14:13)
--- NOTE | 2020-05-19 14:29 | NUR ---
NEW BAG OF HEPARIN /DEXT 5% INITIATED. PT TOLERATED PROCEDURE WELL
[2020-05-19 14:47] VITALS: BP 107/78
[2020-05-19] MEDS: ALBUTEROL 0.083% 2.5 MG/3 ML NEBU INH PRN (14:52)
--- NOTE | 2020-05-19 15:57 | NUR ---
PT DISCHARGED TO [facility] [place] TO HIGHER LEVEL OF CARE. IV HEPARIN DISCONTINUED, 3000 U HEPARIN BOLUS ADMINISTERED TO R. FA 20 G, PT TOLERATED PROCEDURE WELL. ID BAND REMOVED, DISCHARGE PACKET GIVEN TO BETTY ZULETA. PT PLACED ON 3L OXYGEN FOR TRASPORT. PT STABLE UPON DISCHARGE
--- NOTE | 2020-05-19 18:35 | NUR ---
[facility] PHARMACIST CALLED FOR INFORMATION ON PT. UPDATED [facility]- PHARMACIST ON PT HEPARIN DRIP AND PTT PER RECORD.
== END 2020-05-19 16:05 | disposition short-term general hospital (02) | DRG 175 ==
LOC: MED 12:15 → MTU 15:13
PROVIDERS: ADMIT Family Medicine; ATTEND Family Medicine
DX: I26.99 Other pulmonary embolism without acute cor pulmonale (principal); J18.9 Pneumonia, unspecified organism; J96.00 Acute respiratory failure, unspecified whether with hypoxia or hypercapnia; I31.3 Pericardial effusion (noninflammatory); D68.59 Other primary thrombophilia; I10 Essential (primary) hypertension; E03.9 Hypothyroidism, unspecified; E87.6 Hypokalemia; E78.5 Hyperlipidemia, unspecified; I07.1 Rheumatic tricuspid insufficiency; Z20.822 Contact with and (suspected) exposure to COVID-19
CPT/HCPCS: 36415; 71046; 71275; 80048; 80053; 80202; 81003; 82150; 82803; 83690; 83735; 83880; 84100; 84436; 84439; 84443; 84479; 84484; 85025; 85379; 85610; 85730; 87040; 87081; 93005; 94640; 96365; 99291; J1644; J2405; J2543; J3370; J7060; J7512; J7613; Q9967

== ENCOUNTER 2020-05-27 12:52 | Emergency (ER) | payer OTHER, SELFPAY ==
[~2020-05-27] VITALS: Ht 175.3 cm; Wt 79.4 kg
[~2020-05-27 12:52] MED LIST changes: -AZIT250T3 PO; -CEPH250C16 PO; -CODE-107 PO; -HYDR-5080 PO; -VANC125C5 PO
[2020-05-27 12:56] VITALS: BP 110/69
--- NOTE | 2020-05-27 13:03 | NUR ---
w/c assisted to bed 12
--- NOTE | 2020-05-27 13:16 | NUR ---
65 Y/O FEMALE COMPLAINS OF LEAKAGE FROM LEFT CHEST X 30MINS-1HR. PT STATES "HEART WAS DRAINED RECENTLY" DUE TO PNA OF LEFT LUNG. LEFT CHEST INCISION PAIN 6/10, DULL, INTERMITTENT, DOES NOT RADIATE. SITE HEALING, SEROSANGUINOUS DRAINAGE PRESENT, NO ODOR. SURROUNDING SKIN INTACT, NORMAL COLOR, NORMAL TEMP. SPO2 98% ON 2LPM VIA NASAL CANNULA, PRODUCTIVE COUH PRESENT, CLEAR LUNG SOUNDS THROUGHOUT, SYMMETRICAL CHEST EXPANSION. PT ON MONITOR. AO4, BREATHING EVEN AND UNLABORED, SKIN WARM AND DRY. BED IN LOWEST POSITION, LOCKED, X1 SIDERAIL UP. PMH - PNA NKA
[2020-05-27] MEDS ORDERED: guaiFENesin DM 200/20 MG-10 ML 10 ML UDC PO ONE (14:10)
[2020-05-27 14:32] VITALS: BP 110/69
--- NOTE | 2020-05-27 14:33 | NUR ---
Patient discharged with v/s stable. Written and verbal after care instructions ABOUT PLEURAL EFFUSION given and explained. Patient verbalized understanding. Wheel Chair Assisted with to car. All questions addressed prior to discharge. Advised to follow up with PMD.
== END 2020-05-27 14:33 | disposition home or self-care (01) ==
LOC: MED 12:52
DX: T81.89XA Other complications of procedures, not elsewhere classified, initial encounter (principal); J90 Pleural effusion, not elsewhere classified; I10 Essential (primary) hypertension; E07.9 Disorder of thyroid, unspecified; Z48.00 Encounter for change or removal of nonsurgical wound dressing
CPT/HCPCS: 99284

== ENCOUNTER 2020-06-01 17:39 | Inpatient (IN) | payer OTHER, SELFPAY ==
[~2020-06-01] VITALS: Ht 175.3 cm; Wt 79.4 kg
[2020-06-01 17:47] VITALS: BP 113/71
[2020-06-01] MEDS ORDERED: ONDANSETRON 4 MG/2 ML VIAL IVP ONE (18:00)
[2020-06-01] MEDS ORDERED: MORPHINE SULFATE 4 MG/ML SYR IVP ONE (18:00)
[2020-06-01 18:14] LABS: BASOPHILS % (AUTO) 0.3 % (0.0-2.0); EOSINOPHILS # (AUTO) 1.9 K/uL (0-0.4); EOSINOPHILS % (AUTO) 20.1 % (0.0-4.0); HEMATOCRIT 31.8 % (36-48); HEMOGLOBIN 10.6 g/dL (12.0-16.0); LYMPHOCYTES # (AUTO) 0.5 K/uL (2.5-16.5); LYMPHOCYTES % (AUTO) 5.4 % (20.5-51.1); MEAN CORPUSCULAR HEMOGLOBIN 28 pg (27-31); MEAN CORPUSCULAR HGB CONC 33 g/dL (33-37); MEAN CORPUSCULAR VOLUME 82.4 fL (80-94); MONOCYTES # (AUTO) 0.4 K/uL (0.8-1.0); MONOCYTES % (AUTO) 4.7 % (1.7-9.3); NEUTROPHILS # (AUTO) 6.5 K/uL (1.8-7.7); NEUTROPHILS % (AUTO) 69.5 % (42.2-75.2); PLATELET COUNT (AUTO) 609 K/uL (140-450); RED BLOOD CELL COUNT(AUTO) 3.87 MIL/uL (4.20-5.40); RED CELL DISTRIBUTION WIDTH 14.9 % (11.6-13.7); WHITE BLOOD COUNT (AUTO) 9.4 K/uL (4.8-10.8)
[2020-06-01 18:28] LABS: ALBUMIN 2.5 g/dL (3.4-5.0); ANION GAP 10.3 (8-16); CARBON DIOXIDE 32.6 mmol/L (21-32); CREATININE 0.8 mg/dL (0.6-1.3); TOTAL BILIRUBIN 0.2 mg/dL (0.0-1.0)
[2020-06-01 18:34] LABS: POTASSIUM 2.9 mmol/L (3.5-5.1)
[2020-06-01] MEDS ORDERED: POTASSIUM CHLORIDE 10 MEQ TABER PO ONE ×2 (19:10→20:10)
[2020-06-01 19:13] LABS: PROTHROMBIN TIME 10.6 secs (10.8-13.4)
[2020-06-01] MEDS ORDERED: ACETAMINOPHEN 325 MG TAB PO PRN (20:25)
[2020-06-01] MEDS ORDERED: ONDANSETRON 4 MG/2 ML VIAL IVP PRN (20:25)
[2020-06-01] MEDS ORDERED: DOCUSATE SODIUM 100 MG GELCAP PO PRN (20:25)
[2020-06-01] MEDS ORDERED: PROM25TA27 PO (20:41)
[2020-06-01] MEDS ORDERED: FURO-572 PO (20:41)
[2020-06-01] MEDS ORDERED: FAMO10TA93 PO (20:41)
[2020-06-01] MEDS ORDERED: OXYC5CAP26 PO (20:41)
[2020-06-01] MEDS ORDERED: APIX2.5 PO (20:41)
[2020-06-01] MEDS ORDERED: TRAM50TA1 PO (20:41)
[2020-06-01] MEDS ORDERED: SYN.05 PO (20:41)
[2020-06-01 20:53] LABS: CHOL/HDL RATIO 4.4 (1-4.5); FREE T4 (FREE THYROXINE) 0.94 ng/dL (0.76-1.46); MAGNESIUM 1.8 mg/dL (1.8-2.4); PHOSPHORUS 3.3 mg/dL (2.5-4.9); THYROID STIMULATING HORMONE 14.69 uIU/mL (0.34-3.74)
[2020-06-01] MEDS ORDERED: LOVENOX 1MG/KG Q24H SUBQ SCH (21:00)
[2020-06-01 21:03] LABS: ANION GAP 7.6 (8-16); CARBON DIOXIDE 35.5 mmol/L (21-32); CREATININE 0.8 mg/dL (0.6-1.3); POTASSIUM 3.1 mmol/L (3.5-5.1)
[2020-06-01 22:00] VITALS: BP 114/79
[2020-06-01] MEDS: NACL 0.9% 1,000 ML IV SCH (22:18)
[2020-06-01] MEDS: ENOXAPARIN 80 MG/0.8 ML SYR SUBQ SCH (22:24)
[2020-06-01] MEDS: MORPHINE SULFATE 2 MG/ML SYR IVP PRN (22:26)
[2020-06-02] VITALS: BP 100/64
[2020-06-02] MEDS: LORazepam 2 MG/ML VIAL IM/IVP PRN ×3 (00:12→20:45)
[2020-06-02] MEDS: HYDROcodone/APAP 5/325 MG 1 TAB TAB PO PRN (03:38)
[2020-06-02 04:00] VITALS: BP 108/67
[2020-06-02 05:26] LABS: BASOPHILS # (AUTO) 0.1 K/uL (0.00-0.22); BASOPHILS % (AUTO) 0.9 % (0.0-2.0); EOSINOPHILS # (AUTO) 0.3 K/uL (0-0.4); EOSINOPHILS % (AUTO) 4.2 % (0.0-4.0); HEMATOCRIT 29.6 % (36-48); HEMOGLOBIN 9.7 g/dL (12.0-16.0); LYMPHOCYTES # (AUTO) 0.8 K/uL (2.5-16.5); LYMPHOCYTES % (AUTO) 10.3 % (20.5-51.1); MEAN CORPUSCULAR HEMOGLOBIN 27 pg (27-31); MEAN CORPUSCULAR HGB CONC 33 g/dL (33-37); MEAN CORPUSCULAR VOLUME 83.3 fL (80-94); MONOCYTES # (AUTO) 0.8 K/uL (0.8-1.0); NEUTROPHILS # (AUTO) 5.8 K/uL (1.8-7.7); NEUTROPHILS % (AUTO) 74.6 % (42.2-75.2); PLATELET COUNT (AUTO) 569 K/uL (140-450); RED BLOOD CELL COUNT(AUTO) 3.56 MIL/uL (4.20-5.40); WHITE BLOOD COUNT (AUTO) 7.7 K/uL (4.8-10.8)
[2020-06-02 05:46] LABS: ANION GAP 6.6 (8-16); CREATININE 0.8 mg/dL (0.6-1.3); POTASSIUM 3.6 mmol/L (3.5-5.1)
[2020-06-02 05:57] LABS: MAGNESIUM 1.9 mg/dL (1.8-2.4); PHOSPHORUS 3.4 mg/dL (2.5-4.9)
[2020-06-02] MEDS: NACL 0.9% 1,000 ML IV SCH ×2 (06:32→16:05)
[2020-06-02] MEDS ORDERED: ALBUTEROL SULFATE/IPRATROPIU 3 ML SOL IH PRN (06:35)
[2020-06-02] MEDS: MORPHINE SULFATE 2 MG/ML SYR IVP PRN ×4 (07:43→19:30)
[2020-06-02 08:00] VITALS: BP 109/69
[2020-06-02] MEDS: ALBUTEROL SULFATE/IPRATROPIU 3 ML SOL IH SCH ×5 (08:15→23:06)
[2020-06-02] MEDS ORDERED: LEVOTHYROXINE 0.1 MG TAB PO SCH (08:30)
[2020-06-02] MEDS: FUROSEMIDE 20 MG TAB PO SCH (09:11)
[2020-06-02] MEDS: APIXABAN 2.5 MG TAB PO SCH ×2 (09:12→21:00)
[2020-06-02] MEDS: ENOXAPARIN 80 MG/0.8 ML SYR SUBQ SCH ×2 (09:13→21:00)
[2020-06-02 12:00] VITALS: BP 109/63
[2020-06-02 16:00] VITALS: BP 115/70
[2020-06-02] MEDS: DEXT 5% / NACL 0.45% 1,000 ML IV SCH (19:30)
[2020-06-02 20:00] VITALS: BP 120/77
[2020-06-03] VITALS: BP 134/84
[2020-06-03] MEDS: MORPHINE SULFATE 2 MG/ML SYR IVP PRN ×4 (01:04→20:10)
[2020-06-03] MEDS: NACL 0.9% 1,000 ML IV SCH (02:25)
[2020-06-03] MEDS: ALBUTEROL SULFATE/IPRATROPIU 3 ML SOL IH SCH ×6 (03:00→23:00)
[2020-06-03 04:00] VITALS: BP 121/82
[2020-06-03] MEDS: DEXT 5% / NACL 0.45% 1,000 ML IV SCH ×2 (04:30→21:25)
[2020-06-03] MEDS: LEVOTHYROXINE 0.1 MG TAB PO SCH (05:50)
[2020-06-03 08:00] VITALS: BP 139/87
[2020-06-03] MEDS: FUROSEMIDE 20 MG TAB PO SCH (08:20)
[2020-06-03] MEDS: APIXABAN 2.5 MG TAB PO SCH (08:20)
[2020-06-03] MEDS: ENOXAPARIN 80 MG/0.8 ML SYR SUBQ SCH ×2 (08:24→21:25)
[2020-06-03] MEDS ORDERED: MIDAZOLAM 2 MG/2 ML VIAL ONE (08:40)
[2020-06-03] MEDS ORDERED: diphenhydrAMINE 50 MG/ML VIAL ONE (08:40)
[2020-06-03] MEDS ORDERED: fentaNYL citrate 0.05 MG/ML VIAL ONE (08:40)
[2020-06-03] MEDS ORDERED: POTASSIUM CHLORIDE 20% 40 MEQ/15 ML UDC GT SCH (10:05)
[2020-06-03 12:00] VITALS: BP 120/63
[2020-06-03] MEDS ORDERED: MIDAZOLAM 2 MG/2 ML VIAL IVP ONE (12:10)
[2020-06-03] MEDS ORDERED: fentaNYL citrate 0.05 MG/ML VIAL IVP ONE (12:10)
[2020-06-03] MEDS: LORazepam 2 MG/ML VIAL IM/IVP PRN ×2 (13:33→21:32)
[2020-06-03 16:00] VITALS: BP 138/90
[2020-06-03] MEDS: HYDROcodone/APAP 5/325 MG 1 TAB TAB PO PRN (17:49)
[2020-06-03 18:32] LABS: APPEARANCE,URINE CLEAR (CLEAR); BILIRUBIN,URINE NEGATIVE (NEGATIVE); BLOOD, URINE NEGATIVE (NEGATIVE); COLOR,URINE YELLOW (YELLOW); LEUKOCYTE ESTERASE ,URINE NEGATIVE (NEGATIVE); NITRITE, URINE NEGATIVE (NEGATIVE); PH,URINE 7.5 (5.0-9.0); UGLUCOSE NEGATIVE (NEGATIVE)
[2020-06-03 20:00] VITALS: BP 108/79
[2020-06-04] MEDS: LORazepam 2 MG/ML VIAL IM/IVP PRN ×2 (01:35→14:31)
[2020-06-04 04:00] VITALS: BP 119/77
[2020-06-04] MEDS: ALBUTEROL SULFATE/IPRATROPIU 3 ML SOL IH SCH ×6 (04:22→23:42)
[2020-06-04 06:03] LABS: CARBON DIOXIDE 27.4 mmol/L (21-32); CREATININE 0.7 mg/dL (0.6-1.3); POTASSIUM 3.4 mmol/L (3.5-5.1)
[2020-06-04] MEDS: LEVOTHYROXINE 0.1 MG TAB PO SCH (06:11)
[2020-06-04 06:46] LABS: BASOPHILS # (AUTO) 0.1 K/uL (0.00-0.22); BASOPHILS % (AUTO) 0.6 % (0.0-2.0); EOSINOPHILS # (AUTO) 0.2 K/uL (0-0.4); EOSINOPHILS % (AUTO) 1.8 % (0.0-4.0); HEMATOCRIT 32.3 % (36-48); HEMOGLOBIN 10.8 g/dL (12.0-16.0); LYMPHOCYTES # (AUTO) 0.8 K/uL (2.5-16.5); LYMPHOCYTES % (AUTO) 7.2 % (20.5-51.1); MEAN CORPUSCULAR HEMOGLOBIN 28 pg (27-31); MEAN CORPUSCULAR HGB CONC 33 g/dL (33-37); MEAN CORPUSCULAR VOLUME 82.8 fL (80-94); MONOCYTES # (AUTO) 0.7 K/uL (0.8-1.0); MONOCYTES % (AUTO) 6.1 % (1.7-9.3); NEUTROPHILS # (AUTO) 9.1 K/uL (1.8-7.7); NEUTROPHILS % (AUTO) 84.3 % (42.2-75.2); WHITE BLOOD COUNT (AUTO) 10.8 K/uL (4.8-10.8)
[2020-06-04 07:30] LABS: PLATELET COUNT (AUTO) 870 K/uL (140-450)
[2020-06-04 08:00] VITALS: BP 128/77
[2020-06-04] MEDS: FUROSEMIDE 20 MG TAB PO SCH (08:23)
[2020-06-04] MEDS: ENOXAPARIN 80 MG/0.8 ML SYR SUBQ SCH ×2 (08:24→21:15)
[2020-06-04] MEDS ORDERED: POTASSIUM CHLORIDE 20% 40 MEQ/15 ML UDC GT SCH (11:00)
[2020-06-04] MEDS: MORPHINE SULFATE 2 MG/ML SYR IVP PRN ×3 (11:28→21:30)
[2020-06-04 16:00] VITALS: BP 127/86
[2020-06-04 20:00] VITALS: BP 111/73
[2020-06-04] MEDS: DEXT 5% / NACL 0.45% 1,000 ML IV SCH (21:15)
[2020-06-04] MEDS: HYDROcodone/APAP 5/325 MG 1 TAB TAB PO PRN (23:48)
[2020-06-04] MEDS: ZOLPIDEM 5 MG TAB PO PRN (23:48)
[2020-06-05] MEDS: MORPHINE SULFATE 2 MG/ML SYR IVP PRN ×5 (02:17→23:56)
[2020-06-05] MEDS: ALBUTEROL SULFATE/IPRATROPIU 3 ML SOL IH SCH ×4 (03:38→19:45)
[2020-06-05 05:26] LABS: BASOPHILS # (AUTO) 0.3 K/uL (0.00-0.22); BASOPHILS % (AUTO) 2.2 % (0.0-2.0); EOSINOPHILS # (AUTO) 0.4 K/uL (0-0.4); EOSINOPHILS % (AUTO) 3.1 % (0.0-4.0); HEMATOCRIT 30.9 % (36-48); HEMOGLOBIN 10.2 g/dL (12.0-16.0); LYMPHOCYTES # (AUTO) 0.9 K/uL (2.5-16.5); LYMPHOCYTES % (AUTO) 8.3 % (20.5-51.1); MEAN CORPUSCULAR HEMOGLOBIN 27 pg (27-31); MEAN CORPUSCULAR HGB CONC 33 g/dL (33-37); MEAN CORPUSCULAR VOLUME 82.2 fL (80-94); MONOCYTES # (AUTO) 0.8 K/uL (0.8-1.0); MONOCYTES % (AUTO) 7.2 % (1.7-9.3); NEUTROPHILS % (AUTO) 79.2 % (42.2-75.2); PLATELET COUNT (AUTO) 809 K/uL (140-450); RED BLOOD CELL COUNT(AUTO) 3.76 MIL/uL (4.20-5.40); RED CELL DISTRIBUTION WIDTH 14.9 % (11.6-13.7); WHITE BLOOD COUNT (AUTO) 11.4 K/uL (4.8-10.8)
[2020-06-05 05:30] LABS: ANION GAP 9.8 (8-16); CARBON DIOXIDE 29.5 mmol/L (21-32); CREATININE 0.7 mg/dL (0.6-1.3); POTASSIUM 3.3 mmol/L (3.5-5.1)
[2020-06-05 05:32] LABS: MAGNESIUM 1.9 mg/dL (1.8-2.4); PHOSPHORUS 3.6 mg/dL (2.5-4.9)
[2020-06-05] MEDS: LEVOTHYROXINE 0.1 MG TAB PO SCH (05:57)
[2020-06-05] MEDS: HYDROcodone/APAP 5/325 MG 1 TAB TAB PO PRN (09:12)
[2020-06-05] MEDS: FUROSEMIDE 20 MG TAB PO SCH (09:13)
[2020-06-05] MEDS: ENOXAPARIN 80 MG/0.8 ML SYR SUBQ SCH ×2 (09:14→20:28)
[2020-06-05] MEDS: LORazepam 2 MG/ML VIAL IM/IVP PRN ×3 (09:15→21:07)
[2020-06-05 12:21] VITALS: BP 127/91
[2020-06-05] MEDS ORDERED: POTASSIUM CHLORIDE 10 MEQ TABER PO PRN (16:20)
[2020-06-05] MEDS: DEXT 5% / NACL 0.45% 1,000 ML IV SCH (20:28)
[2020-06-05] MEDS: ZOLPIDEM 5 MG TAB PO PRN (23:56)
[2020-06-06] VITALS: BP 125/81
[2020-06-06] MEDS: ALBUTEROL SULFATE/IPRATROPIU 3 ML SOL IH SCH ×2 (01:38→20:26)
[2020-06-06] MEDS: HYDROcodone/APAP 5/325 MG 1 TAB TAB PO PRN (04:04)
[2020-06-06] MEDS: LORazepam 2 MG/ML VIAL IM/IVP PRN ×4 (05:17→20:47)
[2020-06-06] MEDS: LEVOTHYROXINE 0.1 MG TAB PO SCH (06:57)
[2020-06-06 08:00] VITALS: BP 120/90
[2020-06-06] MEDS: FUROSEMIDE 20 MG TAB PO SCH (08:17)
[2020-06-06] MEDS: MORPHINE SULFATE 2 MG/ML SYR IVP PRN ×3 (08:18→19:26)
[2020-06-06] MEDS: ENOXAPARIN 80 MG/0.8 ML SYR SUBQ SCH (08:52)
[2020-06-06 16:00] VITALS: BP 119/78
[2020-06-06] MEDS ORDERED: DEXAMETHASONE 10 MG/ML VIAL IVP STA (16:23)
[2020-06-06] MEDS ORDERED: DEXAMETHASONE 4 MG/ML VIAL ONE (17:51)
[2020-06-06] MEDS ORDERED: DEXAMETHASONE 10 MG/ML VIAL ONE (17:54)
[2020-06-06] MEDS ORDERED: DEXAMETHASONE 4 MG TAB PO SCH (21:00)
[2020-06-06 21:21] VITALS: BP 123/80
[2020-06-09] MEDS ORDERED: DEXAMETHASONE 4 MG TAB PO SCH (09:00)
== END 2020-06-06 21:50 | disposition hospice, home (50) | DRG 180 ==
LOC: MED 17:39 → MTU 20:21
PROVIDERS: ADMIT Family Medicine; ATTEND Family Medicine
PROC: 0DH63UZ Insertion of Feeding Device into Stomach, Percutaneous Approach (ICD-10-PCS; principal; 2020-06-03 09:00)
DX: C34.90 Malignant neoplasm of unspecified part of unspecified bronchus or lung (principal); I26.99 Other pulmonary embolism without acute cor pulmonale; J18.9 Pneumonia, unspecified organism; J96.00 Acute respiratory failure, unspecified whether with hypoxia or hypercapnia; I31.3 Pericardial effusion (noninflammatory); J44.0 Chronic obstructive pulmonary disease with (acute) lower respiratory infection; D68.59 Other primary thrombophilia; J91.0 Malignant pleural effusion; C79.31 Secondary malignant neoplasm of brain; Z51.5 Encounter for palliative care; E03.9 Hypothyroidism, unspecified; E78.5 Hyperlipidemia, unspecified; R13.10 Dysphagia, unspecified; G89.29 Other chronic pain; M54.9 Dorsalgia, unspecified; Z20.822 Contact with and (suspected) exposure to COVID-19; I10 Essential (primary) hypertension; F32.9 Major depressive disorder, single episode, unspecified; E87.6 Hypokalemia; M94.0 Chondrocostal junction syndrome [Tietze]; R59.1 Generalized enlarged lymph nodes; Z83.3 Family history of diabetes mellitus; Z87.820 Personal history of traumatic brain injury; Z79.899 Other long term (current) drug therapy; Z79.01 Long term (current) use of anticoagulants
CPT/HCPCS: 36415; 70450; 71045; 71250; 80048; 80053; 81003; 82150; 83036; 83690; 83735; 83880; 84100; 84439; 84443; 84484; 85025; 85610; 85730; 86886; 86900; 86901; 87081; 92610; 92700; 93005; 94640; 96374; 96375; 97110; 97530; 99285; J1100; J1200; J1650; J2060; J2250; J2270; J2405; J3010; J7030; Q9967; U0003